=== PATIENT | female | born 1970 | race Caucasian/White ===

== ENCOUNTER 2016-04-24 13:10 | Emergency (ER) | payer OTHER ==
[~2016-04-24] VITALS: Ht 167.6 cm; Wt 59.0 kg
--- NOTE | 2016-04-24 13:43 | ED GENERAL ADULT ---
History of Present Illness General Chief Complaint: Female Urogenital Problems Stated Complaint: VAGINAL BLEEDING 10 WEEKS PREG Source: patient Exam Limitations: no limitations Vital Signs & Intake/Output Vital Signs & Intake/Output Vital Signs Date Time Temp Pulse Resp B/P Pulse O2 O2 Flow FiO2 Ox Delivery Rate 04/24 1600 128/82 04/24 1546 98.2 88 16 140/89 99 Room Air 04/24 1355 Room Air 04/24 1321 97.5 89 16 146/86 99 Room Air Allergies Coded Allergies: No Known Allergies (04/24/16) Reconcile Medications No Known Home Medications Triage Note: PT IS 10 WEEKS AND THIS AM SHE BEGAN TO BLEED. THIS IS PT'S FIRST . PT HAVING BRIGHT RED BLOOD. PT HAD TO CHANGE PAD ONLY ONCE. Triage Nurses Notes Reviewed? yes Onset: Gradual Duration: hour(s): (4) Timing: no prior history Injury Environment: home Severity: mild Severity Numbers: 5 No Modifying Factors: none : Yes Patient currently breastfeeds: No HPI: Patient is a 45-year-old female who is currently 10 weeks , estimated due date is in November presenting to the emergency department chief complaining of spotting that began this morning. She is also reporting lower abdominal cramping. Denies passing any clots. Blood is red in color. Denies any nausea vomiting fevers or chills. This is her first . She R he had an ultrasound that confirmed intrauterine . Denies any urinary frequency urgency or dysuria. No chest pain palpitations shortness of breath. Denies taking anything to help with symptoms. She tried calling her DIRECTOR OF CLINICAL EDUCATION but they were not in today. (ELLEN ORDONEZ) Past History Travel History Traveled to [place] past 21 day No Medical History Any Pertinent Medical History? see below for history Surgical History Surgical History: non-contributory Psychosocial History What is your primary language Belgian Tobacco Use: Never used ETOH Use: denies use Illicit Drug Use: denies illicit drug use Family History Hx Contributory? No (ELLEN ORDONEZ) Review of Systems Review of Systems Constitutional: Reports: no symptoms. Comments Review of systems: See HPI, All other systems negative. Constitutional, no chills fever or weight loss HEENT: No visual changes no sore throat no congestion Cardiovascular: No chest pain ,palpitation Skin, no jaundice no rashes Respiratory: No dyspnea cough sputum or hemoptysis GI: No nausea no vomiting : No dysuria No hematuria Muscle skeletal: no back pain, no neck pain, Neurologic: No numbness no confusion Psych: No stress anxiety Immunology: No splenectomy or history of AIDS (ELLEN ORDONEZ) Physical Exam Physical Exam General Appearance: well developed/nourished, no apparent distress, alert, awake , comfortable Comments: Well-developed well-nourished person in no acute distress HEENT: Pupils equally round and reactive to light and accommodation. Nose is atraumatic. Neck: Normal inspection Back: Nontender, no CVA tenderness. Cardiovascular: Regular rate and rhythms no murmurs rubs or gallops, normal JVP Respiratory: Chest nontender. No respiratory distress.breath sounds clear to auscultation bilaterally Abdomen: Soft, nontender nondistended, no appreciable organomegaly. Normal bowel sounds. No ascites, no rebound or gaurding. Pelvic: Mild amount of bleeding on pad, no bleeding on glove. cervical os feels open. Extremity: No edema Neuro: Alert oriented x3 Skin: No appreciable rash on exposed skin, skin is warm and dry. Psych: Mood and affect is normal, memory and judgment is normal. Core Measures ACS in differential dx? No CVA/TIA Diagnosis: No Severe Sepsis Present: No Septic Shock Present: No (ELLEN ORDONEZ) Progress Differential Diagnoses I considered the following diagnoses in my evaluation of the patient: threatened miscarriage, , ectopic, inevitable miscarriage, anemia Plan of Care: Orders Procedure Date/time Status Add-on Test (ER Only) 04/24 1542 Active TYPE & SCREEN (NOT X-MATCH) 04/24 1352 Complete CULTURE,URINE 04/24 1344 Active URINALYSIS 04/24 1342 Complete HUMAN BETA HCG TITRE 04/24 1342 Complete COMPREHENSIVE METABOLIC PANEL 04/24 1342 Complete CBC WITHOUT DIFFERENTIAL 04/24 1342 Complete Laboratory Tests 04/24/16 1355: Urinalysis LIGHT H, Urine Color SHIMON, Urine Clarity HAZY H, Urine pH 6.0, Ur Specific [place] >= 1.030, Urine Protein TRACE H, Urine Ketones NEG, Urine Nitrite NEG, Urine Bilirubin NEG, Urine Urobilinogen 0.2, Ur Leukocyte Esterase SMALL H, Ur Microscopic SEDIMENT EXAMINED, Urine RBC 10-15 H, Urine WBC 15-25 H, Ur Epithelial Cells MANY H, Urine Bacteria FEW H, Urine Mucus RARE, Urine Hemoglobin LARGE H, Urine Glucose NEG 04/24/16 1352: Anion Gap 13, Estimated GFR > 60, BUN/Creatinine Ratio 16.7, Glucose 94, Calcium 9.9, Total Bilirubin 0.5, AST 17, ALT 32, Alkaline Phosphatase 50, Total Protein 7.5, Albumin 4.6, Globulin 2.9, Albumin/Globulin Ratio 1.6, Beta HCG, Quant 30247.0, CBC w Diff NO MAN DIFF REQ, RBC 4.47, MCV 82.6, MCH 27.5, RDW 17.4 H, MPV 7.7, Gran % 78.5 H, Lymphocytes % 15.4 L, Monocytes % 4.4, Eosinophils % 1.2, Basophils % 0.5, Absolute Granulocytes 6.2, Absolute Lymphocytes 1.2, Absolute Monocytes 0.3, Absolute Eosinophils 0.1, Absolute Basophils 0, PUBS MCHC 33.3 Microbiology 04/24 1355 URINE ROUT: Urine Culture - RECD Diagnostic Imaging: Viewed by Me: Ultrasound. Discussed w/RAD: Ultrasound. Radiology Impression: PATIENT: JOSE RODRIGUEZ PRESENT AGE: 45 PATIENT ACCOUNT NO: [id number] : 72 LOCATION: [facility] [place] ORDERING PHYSICIAN: ELLEN ROSENTHAL SERVICE DATE: 04/24/16-1341 EXAM TYPE: US - US TRANSVAG EXAMINATION: Ultrasound of , less than 14 weeks. INDICATION: , vaginal bleeding and pain. TECHNIQUE: Real-time ultrasound of was performed with a transabdominal and transvaginal transducer accessing grayscale appearance and color Doppler flow. COMPARISON: None FINDINGS : Multiple sonographic images of the pelvis demonstrates a single intrauterine . heart rate was not detected despite multiple attempts. No movement is seen either. A pole and the a yolk sac is visualized. The crown-rump length is 1.7 cm ( 8 weeks 4 days). The mean gestational sac diameter is 3.44 cm ( 8 weeks 6 days). The yolk sac measures 0.3 cm in diameter. The cervix measures 2.9 cm in length. There is a 6 mm hypoechoic structure at the cervix of the uterus which could represent a small fibroid. This corresponds to a mean age of 8 weeks and 4 days with estimated and expected date of delivery on 11/30/2016. This does not correlate well with the patient's last menstrual period of 02/10/2016 and estimated due date of 11/16/2016 IMPRESSION: There is a single intrauterine uterine . The heart rate is not identified despite multiple attempts. The gestational age based on the ultrasound findings is 8 weeks 4 days which does not correlate with the gestational age based on the LMP of 10 weeks and 4 days. Findings suggest demise. Clinical correlation is advised. DICTATED BY: WENDY BEAR MD DATE/TIME DICTATED:04/24/161527 NET SOFTWARE ENGINEER:CANDIE DATE/TIME TRANSCRIBED:04/24/161527 CONFIDENTIAL, DO NOT COPY WITHOUT APPROPRIATE AUTHORIZATION. <Electronically signed in Other Vendor System> SIGNED BY: WENDY BEAR MD 04/24/16 1532 Initial ED EKG: none Comments: Decline pain medication on arrival. Patient will follow ultrasound, CBC, CMP, hCG titer. Patient informed of all laboratory results and ultrasound results. Concerning for demise. Patient follow-up with DIRECTOR OF CLINICAL EDUCATION tomorrow. Given results of all blood work and imaging studies. All questions answered. Discussed with Dr. kaufman and he agrees with plan. (ELLEN ORDONEZ) Departure Departure Time of Disposition: 5 Disposition: HOME OR SELF CARE Condition: Stable Clinical Impression Primary Impression: Threatened miscarriage in early Ruled Out Impressions: Threatened Referrals: PATIENT HAS NO PRIMARY CARE DR (PCP/Family) Additional Instructions: Follow-up with your DIRECTOR OF CLINICAL EDUCATION tomorrow call first thing in the morning to make an appointment. you will need repeat ultrasounds and repeat hCG levels. Return for worsening symptoms or concerns. Departure Forms: Customer Survey General Discharge Information Prescriptions: Current Visit Scripts No Known Home Medications (ELLEN ORDONEZ) PA/QUENCHING CAR OPERATOR Co-Sign Statement Statement: ED Attending supervision documentation- x I saw and evaluated the patient. I have also reviewed all the pertinent lab results and diagnostic results. I agree with the findings and the plan of care as documented in the PA's/QUENCHING CAR OPERATOR's documentation. [] I have reviewed the ED Record and agree with the PA's/QUENCHING CAR OPERATOR's documentation. [] Additions or exceptions (if any) to the PAs/QUENCHING CAR OPERATOR's note and plan are summarized below: [] (REGINALD BOLANOS,KATY) Critical Care Note Critical Care Note Critical Care Time: 30-74 min (HAMILTON ROSENTHAL,ELLEN)
[2016-04-24 14:08] LABS: ABSOLUTE BASOPHIL COUNT 0 /CUMM (0.0-0.2); ABSOLUTE EOSINOPHIL COUNT 0.1 /CUMM (0.0-0.7); ABSOLUTE GRANULOCYTE CT 6.2 /CUMM (1.4-6.5); ABSOLUTE LYMPH COUNT 1.2 /CUMM (1.2-3.4); ABSOLUTE MONOCYTE COUNT 0.3 /CUMM (0.10-0.60); BASOPHIL % 0.5 % (0.0-2.0); EOSINOPHIL % 1.2 % (0-5); GRANULOCYTE % 78.5 % (42.2-75.2); HEMATOCRIT 36.9 % (37-47); MEAN CORPUSCULAR HGB 27.5 PG (27.0-31.0); MEAN CORPUSCULAR HGB CONC 33.3 G/DL (33.0-37.0); MEAN CORPUSCULAR VOLUME 82.6 FL (81.0-99.0); MEAN PLATELET VOLUME 7.7 FL (7.4-10.4); PLATELET COUNT 164 /CUMM (130-400); RBC DISTRIBUTION WIDTH 17.4 % (11.5-14.5); RED BLOOD CELL CT 4.47 /CUMM (4.20-5.40); WHITE BLOOD CELL COUNT 7.9 /CUMM (4.8-10.8)
--- NOTE | 2016-04-24 15:39 | ULTRASOUND REPORT ---
EXAMINATION: Ultrasound of , less than 14 weeks. INDICATION: , vaginal bleeding and pain. TECHNIQUE: Real-time ultrasound of was performed with a transabdominal and transvaginal transducer accessing grayscale appearance and color Doppler flow. COMPARISON: None FINDINGS: Multiple sonographic images of the pelvis demonstrates a single intrauterine . heart rate was not detected despite multiple attempts. No movement is seen either. A pole and the a yolk sac is visualized. The crown-rump length is 1.7 cm ( 8 weeks 4 days). The mean gestational sac diameter is 3.44 cm ( 8 weeks 6 days). The yolk sac measures 0.3 cm in diameter. The cervix measures 2.9 cm in length. There is a 6 mm hypoechoic structure at the cervix of the uterus which could represent a small fibroid. This corresponds to a mean age of 8 weeks and 4 days with estimated and expected date of delivery on 11/30/2016. This does not correlate well with the patient's last menstrual period of 02/10/2016 and estimated due date of 11/16/2016 IMPRESSION: There is a single intrauterine uterine . The heart rate is not identified despite multiple attempts. The gestational age based on the ultrasound findings is 8 weeks 4 days which does not correlate with the gestational age based on the LMP of 10 weeks and 4 days. Findings suggest demise. Clinical correlation is advised.
[2016-04-24 16:00] VITALS: BP 128/82
== END 2016-04-24 16:07 ==
LOC: ERH 13:10 → EDBD 13:28 → ERH 16:07
PROVIDERS: Physician Assistant
DX: O20.0 Threatened abortion (principal)
CPT/HCPCS: 76817; 81001; 87086

== ENCOUNTER 2016-04-25 05:53 | Emergency (ER) | payer OTHER ==
--- NOTE | 2016-04-25 06:06 | ED GI/GU/ABDOMINAL COMPLAINT ---
History of Present Illness General Chief Complaint: Female Urogenital Problems Stated Complaint: " 8WEEKS PREG. ? MISCARRIAGE" Source: patient Exam Limitations: no limitations Vital Signs & Intake/Output Vital Signs & Intake/Output Vital Signs Date Time Temp Pulse Resp B/P Pulse O2 O2 Flow FiO2 Ox Delivery Rate 04/26 0727 66 16 109/59 100 Room Air 04/25 0701 99 Room Air 04/25 0633 97.5 80 20 148/71 100 Room Air Allergies Coded Allergies: No Known Allergies (04/24/16) Reconcile Medications No Known Home Medications Triage Nurses Notes Reviewed? yes ? y Is pt currently ? Yes Onset: Gradual Duration: hour(s): Timing: recent history Quality/Severity: cramping, moderate Location: suprapubic Radiation: no radiation Activities at Onset: none Prior Abdominal Problems: seen yesterday Modifying Factors: Worsens With: other (vaginal bleeding). Associated Symptoms: vaginal bleeding HPI: 45-year-old woman presents with vaginal bleeding. She was seen yesterday when the vaginal bleeding began in small amounts. An u/s yesterday was suggestive of demise (8wk gestational size with 10 week gestational age, no heart movement). She was well at that time. Early this morning, she developed heavier bleeding. "Lots of clots..." which began around 3am. She notes cramping, lower abdominal discomfort. (CHELA BOLANOS,SERVANDO Lyons) Past History Travel History Traveled to [place] past 21 day No Medical History Any Pertinent Medical History? see below for history Surgical History Surgical History: non-contributory Psychosocial History What is your primary language [place]ian Family History Hx Contributory? No (CHELA BOLANOS,SERVANDO Lyons) Review of Systems Review of Systems Constitutional: Reports: no symptoms. EENTM: Reports: no symptoms. Respiratory: Reports: no symptoms. Cardiovascular: Reports: no symptoms. GI: Reports: no symptoms. Genitourinary: Reports: no symptoms. Musculoskeletal: Reports: no symptoms. Skin: Reports: no symptoms. Neurological/Psychological: Reports: no symptoms. Hematologic/Endocrine: Reports: no symptoms. Immunologic/Allergic: Reports: no symptoms. All Other Systems: Reviewed and Negative (CHELA BOLANOS,SERVANDO Lyons) Physical Exam Physical Exam General Appearance: well developed/nourished, mild distress Head: atraumatic, normal appearance Eyes: Bilateral: normal appearance. Ears, Nose, Throat, Mouth: hearing grossly normal Neck: normal inspection, supple, full range of motion, normal alignment Respiratory: normal breath sounds, chest non-tender, no respiratory distress, quiet respiration Cardiovascular: regular rate/rhythm Gastrointestinal: normal bowel sounds, soft, mild suprapubic tenderness to palpation Pelvic: COPIOUS CLOTS OF BLOOD. DIFFICULT TO VISUALIZE CERVICAL OS. Back: normal inspection Extremities: normal range of motion Neurologic/Psych: no motor/sensory deficits, awake, alert, oriented x 3 Core Measures ACS in differential dx? No Severe Sepsis Present: No Septic Shock Present: No (CHELA BOLANOS,SERVANDO Lyons) Progress Differential Diagnosis: miscarriage vs other. Plan of Care: Orders Procedure Date/time Status PARTIAL THROMBOPLASTIN TIME 04/26 631 Complete PROTHROMBIN TIME 04/26 631 Complete HUMAN BETA HCG TITRE 04/26 631 Complete COMPREHENSIVE METABOLIC PANEL 04/26 631 Complete CBC WITHOUT DIFFERENTIAL 04/26 631 Complete Laboratory Tests 04/25/16 0654: Anion Gap 10, Estimated GFR > 60, BUN/Creatinine Ratio 18.0, Glucose 126 H, Calcium 9.7, Total Bilirubin 0.5, AST 19, ALT 27, Alkaline Phosphatase 46, Total Protein 6.7, Albumin 4.2, Globulin 2.5, Albumin/Globulin Ratio 1.7, Beta HCG, Quant 92609.0, PT 11.7, INR 1.12, APTT 21 L, CBC w Diff MAN DIFF ORDERED, RBC 4.13 L, MCV 82.2, MCH 27.3, RDW 17.7 H, MPV 8.6, Gran % 92.2 H, Lymphocytes % 4.2 L, Monocytes % 2.9, Eosinophils % 0.5, Basophils % 0.2, Absolute Granulocytes 11.6 H, Segmented Neutrophils 94 H, Band Neutrophils 3, Absolute Lymphocytes 0.5 L, Lymphocytes 2 L, Monocytes 1 L, Absolute Monocytes 0.4, Absolute Eosinophils 0.1, Absolute Basophils 0, Platelet Estimate ADEQUATE, Normocytic RBCs VERIFIED, Normochromic RBCs VERIFIED, PUBS MCHC 33.2 Diagnostic Imaging: Viewed by Me: Ultrasound. Discussed w/RAD: Ultrasound. Initial ED EKG: none Hand-Off Endorsed To: TRINH BOLANOS,ZHANNA Campbell Endorsed Time: 729 Pending: labs, ultrasound (CHELA BOLANOS,SERVANDO Lyons) Radiology Impression: PATIENT: JOSE RODRIGUEZ PRESENT AGE: 45 PATIENT ACCOUNT NO: [id number] : 72 LOCATION: [facility] ORDERING PHYSICIAN: SERVANDO ROCHA MD SERVICE DATE: 04/25/16 EXAM TYPE: US - US- TRANSVAGINAL EXAMINATION: US TRANSVAGINAL CLINICAL INFORMATION: Vaginal bleed. Question demise. COMPARISON: ultrasound 04/24/2016. TECHNIQUE: Grayscale color flow and Doppler imaging of the pelvis was performed utilizing transabdominal and transvaginal technique. FINDINGS: Last menstrual period 02/09 corresponding to a gestation of 10 weeks 5 days and estimated date of delivery of 11/16/2016. No gestation identified. There is some minimal heterogeneous echogenicity in the cervix without vascularity. Slightly complex cystic area within the right ovary measuring 5 mm suggestive of resolving corpus luteal cyst. Right ovary measures 2.9 x 2 x 1.8 cm. Left ovary 2.9 x 1.3 x 2 cm. Cul-de-sac fluid: Trace. Complex Nabothian cyst versus a small fibroid in the cervix measuring 7 x 5 x 8 mm. Endometrium measures 6 mm at the fundus. IMPRESSION: No gestation seen in the endometrial canal with heterogeneous echogenicity in the cervix compatible with hemorrhage and/or small amount of retained products of conception. Probable resolving corpus luteal cyst in the right ovary. This critical result was discussed with Servando Rocha at approximately 8:35 AM on 04/25/2016 and it was ascertained that the content and urgency of the report was understood at the time of direct communication. DICTATED BY: LIZETTE URIAS MD DATE/TIME DICTATED:04/25/16818 CLIENT EXPERIENCE CONSULTANT:CANDIE DATE/TIME TRANSCRIBED:04/25/16818 CONFIDENTIAL, DO NOT COPY WITHOUT APPROPRIATE AUTHORIZATION. <Electronically signed in Other Vendor System> SIGNED BY: LIZETTE URIAS MD 04/25/16 0851 Comments: 04/25/2016 9:07:27 AM I have updated Jose on her test results. I am attempting to contact her BREASTER doctor for a follow-up plan. 04/25/2016 9:21:07 AM patient's case discussed with Dr. CHARLES covering for her BREASTER doctor. Patient should follow-up in the office this week. (TRINH BOLANOS,ZHANNA Campbell) Departure Departure Condition: Stable Clinical Impression Primary Impression: Miscarriage Referrals: PATIENT HAS NO PRIMARY CARE DR (PCP/Family) Departure Forms: Customer Survey General Discharge Information Prescriptions: Current Visit Scripts No Known Home Medications (CHELA BOLANOS,SERVANDO Lyons) Departure Disposition: HOME OR SELF CARE Additional Instructions: [id number] pain medication as required. Follow-up with your BREASTER doctor this week. Return if any concerns or sudden worsening. Please note that there might be incidental findings in your evaluation that are unrelated to the current emergency department visit. Please notify your primary care doctor about this emergency department visit in order to obtain and review all of the testing performed so that these incidental findings can be monitored as needed. If you had an x-ray performed, please understand that some fractures may not be seen on the initial set of x-rays. If your symptoms persist you might need a repeat set of x-rays to check for such a fracture. If you had a laceration evaluated, please understand that foreign bodies such as glass or wood may not be visible to the naked eye or on plain x-rays. If the wound becomes red, swollen, increasingly more painful or if there is any drainage from the wound, please have it reevaluated by a physician for the possibility of a retained foreign body. (TRINH BOLANOS,ZHANNA Campbell)
[2016-04-25 07:06] LABS: RED BLOOD CELL CT 4.13 /CUMM (4.20-5.40)
[2016-04-25 07:07] LABS: ABSOLUTE BASOPHIL COUNT 0 /CUMM (0.0-0.2)
[2016-04-25 07:14] LABS: PT 11.7 SEC (9.4-12.5); PTT 21 SEC (25-37)
[2016-04-25 07:15] LABS: ABSOLUTE EOSINOPHIL COUNT 0.1 /CUMM (0.0-0.7); ABSOLUTE GRANULOCYTE CT 11.6 /CUMM (1.4-6.5); ABSOLUTE LYMPH COUNT 0.5 /CUMM (1.2-3.4); ABSOLUTE MONOCYTE COUNT 0.4 /CUMM (0.10-0.60); BASOPHIL % 0.2 % (0.0-2.0); EOSINOPHIL % 0.5 % (0-5); GRANULOCYTE % 92.2 % (42.2-75.2); HEMATOCRIT 33.9 % (37-47); MEAN CORPUSCULAR HGB 27.3 PG (27.0-31.0); MEAN CORPUSCULAR HGB CONC 33.2 G/DL (33.0-37.0); MEAN CORPUSCULAR VOLUME 82.2 FL (81.0-99.0); MEAN PLATELET VOLUME 8.6 FL (7.4-10.4); PLATELET COUNT 157 /CUMM (130-400); RBC DISTRIBUTION WIDTH 17.7 % (11.5-14.5)
[2016-04-25 07:16] LABS: WHITE BLOOD CELL COUNT 12.6 /CUMM (4.8-10.8)
--- NOTE | 2016-04-25 08:51 | ULTRASOUND REPORT ---
EXAMINATION: US TRANSVAGINAL CLINICAL INFORMATION: Vaginal bleed. Question demise. COMPARISON: ultrasound 04/24/2016. TECHNIQUE: Grayscale color flow and Doppler imaging of the pelvis was performed utilizing transabdominal and transvaginal technique. FINDINGS: Last menstrual period 02/10/2016 corresponding to a gestation of 10 weeks 5 days and estimated date of delivery of 11/16/2016. No gestation identified. There is some minimal heterogeneous echogenicity in the cervix without vascularity. Slightly complex cystic area within the right ovary measuring 5 mm suggestive of resolving corpus luteal cyst. Right ovary measures 2.9 x 2 x 1.8 cm. Left ovary 2.9 x 1.3 x 2 cm. Cul-de-sac fluid: Trace. Complex Nabothian cyst versus a small fibroid in the cervix measuring 7 x 5 x 8 mm. Endometrium measures 6 mm at the fundus. IMPRESSION: No gestation seen in the endometrial canal with heterogeneous echogenicity in the cervix compatible with hemorrhage and/or small amount of retained products of conception. Probable resolving corpus luteal cyst in the right ovary. This critical result was discussed with Servando Rocha at approximately 8:35 AM on 04/25/2016 and it was ascertained that the content and urgency of the report was understood at the time of direct communication.
[2016-04-25 09:52] VITALS: BP 121/69
== END 2016-04-25 09:53 ==
LOC: ERH 05:53
PROVIDERS: Pediatrics
DX: O03.9 Complete or unspecified spontaneous abortion without complication (principal)
CPT/HCPCS: 96360; 96361